=== PATIENT | male | born 1995 | race Caucasian/White ===

== ENCOUNTER 2022-12-22 16:15 | Emergency (ER) | payer OTHER, SELFPAY ==
[2022-12-22] MEDS ORDERED: Lidocaine 1% (PF) 30 ML VIAL ONE (16:22)
[2022-12-22] MEDS ORDERED: Cephalexin 250 MG CAP ONE (16:45)
== END 2022-12-22 16:52 ==
LOC: NAV ERS 16:15
DX: S60.450A Superficial foreign body of right index finger, initial encounter (principal); Z87.891 Personal history of nicotine dependence; W45.8XXA Other foreign body or object entering through skin, initial encounter
CPT/HCPCS: 64450; J2001